=== PATIENT | male | born 1980 | race Caucasian/White ===

== ENCOUNTER 2021-01-15 19:19 | Emergency (ER) | payer SELFPAY ==
[~2021-01-15] VITALS: Ht 182.9 cm; Wt 97.5 kg
[2021-01-16 01:31] LABS: HEMOGLOBIN 13.8 gm/dl (14.0-17.5); RED BLOOD COUNT 4.81 M/UL (4.20-5.50); WHITE BLOOD COUNT 4.4 K/UL (4.5-11.0)
[2021-01-16 02:42] LABS: BUN/CREATININE RATIO 18 (0-10)
[2021-01-16] MEDS ORDERED: VENTOLIN HFA 66.7 GM INH (03:04)
[2021-01-16] MEDS ORDERED: DECADRON6 MG PO (03:04)
== END 2021-01-16 03:11 | disposition home or self-care (01) ==
LOC: ER1 19:19
PROVIDERS: Emergency Medicine
DX: Z23 Encounter for immunization (principal); U07.1 COVID-19; I10 Essential (primary) hypertension
CPT/HCPCS: 71045; 80053; 85025; 99283; M0243; U0002